=== PATIENT | male | born 1960 | race Caucasian/White ===

== ENCOUNTER 2016-12-14 07:55 | Emergency (ER) | payer MEDICARE, MEDICAID ==
[2016-12-14] MEDS ORDERED: Ketorolac 60 MG/2 ML SDV IM ONE (08:03)
[2016-12-14 08:36] VITALS: BP 136/70
--- NOTE | 2016-12-14 08:40 | EDM.PDOC ---
[id number]: PAIN Time Seen by Provider: 12/14/16 07:55 Source of Information: Reports: Patient History Limitations: Reports: No Limitations - History of Present Illness INITIAL COMMENTS - FREE TEXT/NARRATIVE: c/o generalized pain in w/c in bathroom, w/c fell backward, he said he hurts "everywhere", then says his RLE stump hurt altho this felt better, says he jammed his R 4th and 5th finger altho he can move them, says his R elbow hurts which is fused but otherwise appears normal he felt better after Toradol here, he took his morning meds here in ED (usually takes them at 08:30 at home) his pain meds at home include lido 5%, fentanyl 50, trazdone 100, Benadryl 25 mg , gabapentin 9009 mg tid, oxycodone 20 mg q4h, Wellbutrin SR 200 mg 2 tabs qAM and 1 tab qPM, baclofen 5 mg tid - Related Data Allergies Allergy/AdvReac Type Severity Reaction Status Date / Time No Known Allergies Allergy Verified 12/14/16 08:00 Home Meds: Home Meds Ascorbic Acid [Acerola C] 500 mg PO DAILY 12/14/16 [History] Butalb/Acetaminophen/Caffeine [Xegmcf-Qjiaisgn-Vhch 50-325-40] 1 tab PO TID [History] Fish Oil/[place]-3 Fatty Acids [Fish Oil] 1 each PO DAILY 12/14/16 [History] Gabapentin [Neurontin] 800 mg PO TID 12/14/16 [History] Levothyroxine Sodium [Synthroid] 25 mcg PO ACBREAKFAST 12/14/16 [History] Lidocaine 5% [Lidoderm 5%] 2 patch TOP DAILY 12/14/16 [History] Multivitamin [Multivitamins] 1 cap PO DAILY 12/14/16 [History] PARoxetine HCl [Paxil] 40 mg PO DAILY 12/14/16 [History] PARoxetine [Paxil] 10 mg PO DAILY 12/14/16 [History] Polyethylene Glycol 3350 [MiraLAX] 17 gm PO DAILY 12/14/16 [History] Warfarin [Coumadin] 10 mg PO DAILY 12/14/16 [History] Zolpidem Tartrate [Ambien] 10 mg PO BEDTIME 12/14/16 [History] atorvaSTATin [Lipitor] 20 mg PO BEDTIME 12/14/16 [History] buPROPion HCl [Wellbutrin Sr] 200 mg PO BID 12/14/16 [History] diphenhydrAMINE [Benadryl] 25 mg PO TID 12/14/16 [History] fentaNYL [Fentanyl] 50 mcg TD ASDIRECTED 12/14/16 [History] oxyCODONE HCl [Oxycodone HCl] 20 mg PO Q4HR PRN 12/14/16 [History] oxyCODONE HCl [Oxycontin] 60 mg PO BID 12/14/16 [History] traZODone HCl [Trazodone HCl] 200 mg PO BEDTIME 12/14/16 [History] ED ROS GENERAL - Review of Systems Review Of Systems: See Below Constitutional: Reports: No Symptoms HEENT: Reports: No Symptoms Respiratory: Reports: No Symptoms Cardiovascular: Reports: No Symptoms Endocrine: Reports: No Symptoms GI/Abdominal: Reports: No Symptoms : Reports: No Symptoms Musculoskeletal: Reports: Other (stump pain, RUE pain, generalized pain) Skin: Reports: No Symptoms Neurological: Reports: No Symptoms Psychiatric: Reports: No Symptoms Hematologic/Lymphatic: Reports: No Symptoms Immunologic: Reports: No Symptoms ED EXAM, UPPER BACK/NECK PAIN - Physical Exam Exam: See Below Exam Limited By: No Limitations General Appearance: Alert, WD/WN, Other (moaning without apparent reason for his c/o, no PT anywhere, moves his ext x 3 without hesitation or limitation) Nose Exam: Normal Inspection, Normal Mucousa, No Blood Throat/Mouth Exam: Normal Inspection, Normal Voice, No Airway Compromise Head Exam: Atraumatic, Normocephalic Cardiovascular/Respiratory: Regular Rate, Rhythm GI/Abdominal: Soft, Non-Tender Extremities: Other (RLL absent at the hip, RUE with fusion in partial flexion, at elbow no PT, no STS, no ecchymosis, fingers on R with FROM, no swell, no PT) Neurologic: No Motor/Sensory Deficits, Alert, Oriented x 3 Psychiatric: Anxious Skin Exam: Normal Color, Warm/Dry Lymphatic: No Adenopathy Course - Vital Signs Last Recorded V/S: Last Vital Signs Temp 37.2 C 12/14/16 07:55 Pulse 64 12/14/16 07:55 Resp 18 12/14/16 07:55 BP 136/70 12/14/16 07:55 Pulse Ox 98 12/14/16 07:55 - Orders/Labs/Meds Meds: Medications Discontinued Medications Generic Name Dose Route Start Last Admin Trade Name Stephanie PRN Reason Stop Dose Admin Ketorolac Tromethamine 60 mg 12/14/16 08:03 12/14/16 08:11 Toradol IM 12/14/16 08:04 60 mg ONETIME ONE Administration - Re-Assessments/Exams Free Text/Narrative Re-Assessment/Exam: 12/14/16 11:15 pt had temp 99.5 which may have been d/t his physical activity and thrashing around when he arrived, however he has chronic difficulty with voiding d/t his prior injuries, a u/a was ordered but pt could not obtain a urine here (he had voided x 3 before leaving home), pt agreed to sent a urine in to the hospital from home later for testing Departure - Departure Time of Disposition: 08:41 Disposition: Home, Self-Care 01 Condition: good Clinical Impression: Contusion of right elbow, Contusion of pelvis, Head contusion - Discharge Information Referrals: Montserrat Weller [employer] [Primary Care Provider] - Forms: ED Department Discharge Additional Instructions: Continue your current meds. Use ice for 10 minutes every 2 hours as needed. As an alternative, may use heat for 10 minutes every 2 hours. Rest. Continue current activities. See your doctor in 2 days if you are still having discomfort.
== END 2016-12-14 11:10 | disposition home or self-care (01) ==
LOC: FB.ED 07:55
DX: S50.01XA Contusion of right elbow, initial encounter (principal); S30.0XXA Contusion of lower back and pelvis, initial encounter; S00.93XA Contusion of unspecified part of head, initial encounter; Z79.899 Other long term (current) drug therapy; Z79.01 Long term (current) use of anticoagulants; W18.11XA Fall from or off toilet without subsequent striking against object, initial encounter
CPT/HCPCS: 96372; 99284; J1885; 99283

== ENCOUNTER 2019-02-09 14:18 | Emergency (ER) | payer MEDICARE, OTHER ==
--- NOTE | 2019-02-09 14:54 | EDM.PDOC ---
ED HPI GENERAL MEDICAL PROBLEM - General Chief Complaint: Lower Extremity Injury/Pain Stated Complaint: SWELLING IN LEG Time Seen by Provider: 02/09/19 14:30 Source of Information: Reports: Patient, Old Records History Limitations: Reports: No Limitations - History of Present Illness INITIAL COMMENTS - FREE TEXT/NARRATIVE: Hoa comes to [facility] ED with a 3 day hx of progressive pain and some additional swelling in the LLE. There is no injury hx, known infection, or pulmonary sxs. 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 He is also reporting vague L lower flank pain and a hx of bladder stones, with a cystoscopy scheduled next week in [place]. In addition, he is reporting new onset tenderness and swelling of the L lateral neck near the angle of the mandible, significance unknown. He has taken no meds. Left Leg Pain Score (Numeric/FACES): 4 - Related Data Allergies Allergy/AdvReac Type Severity Reaction Status Date / Time No Known Allergies Allergy Verified 12/28/18 18:10 Home Meds: Home Meds Ascorbic Acid [Acerola C] 500 mg PO DAILY 12/14/16 [History] Butalb/Acetaminophen/Caffeine [Cyertn-Tiunwkqj-Ziut 50-325-40] 1 tab PO TID [History] Fish Oil/[place]-3 Fatty Acids [Fish Oil] 1 each PO DAILY 12/14/16 [History] Gabapentin [Neurontin] 800 mg PO TID 12/14/16 [History] Levothyroxine Sodium [Synthroid] 25 mcg PO ACBREAKFAST 12/14/16 [History] Lidocaine 5% [Lidoderm 5%] 2 patch TOP DAILY 12/14/16 [History] Multivitamin [Multivitamins] 1 cap PO DAILY 12/14/16 [History] PARoxetine HCl [Paxil] 40 mg PO DAILY 12/14/16 [History] PARoxetine [Paxil] 10 mg PO DAILY 12/14/16 [History] Polyethylene Glycol 3350 [MiraLAX] 17 gm PO DAILY 12/14/16 [History] Warfarin [Coumadin] 10 mg PO DAILY 12/14/16 [History] Zolpidem Tartrate [Ambien] 10 mg PO BEDTIME 12/14/16 [History] atorvaSTATin [Lipitor] 20 mg PO BEDTIME 12/14/16 [History] buPROPion HCl [Wellbutrin Sr] 200 mg PO BID 12/14/16 [History] diphenhydrAMINE [Benadryl] 25 mg PO TID 12/14/16 [History] fentaNYL [Fentanyl] 50 mcg TD ASDIRECTED 12/14/16 [History] oxyCODONE HCl [Oxycodone HCl] 20 mg PO Q4HR PRN 12/14/16 [History] oxyCODONE HCl [Oxycontin] 60 mg PO BID 12/14/16 [History] traZODone HCl [Trazodone HCl] 200 mg PO BEDTIME 12/14/16 [History] Past Medical History Cardiovascular History: Reports: Blood Clots/VTE/DVT (L leg x 2), High Cholesterol Genitourinary History: Reports: Renal Calculus Musculoskeletal History: Reports: Amputation (R leg) Psychiatric History: Reports: Other (See Below) (insomnia) Review of Systems - Review of Systems Review Of Systems: See Below Constitutional: Reports: No Symptoms Eyes: Reports: No Symptoms Ears: Reports: No Symptoms Nose: Reports: No Symptoms Mouth/Throat: Reports: Other (edentulous; pain, swelling left lateral neck and angle of mandible) Respiratory: Reports: No Symptoms Cardiovascular: Reports: No Symptoms GI/Abdominal: Reports: No Symptoms Genitourinary: Reports: Other (L lower flank pain) Musculoskeletal: Reports: Leg Pain (L leg with swelling that has slowly progressed) Skin: Reports: Erythema (L leg that may be old) Neurological: Reports: No Symptoms Psychiatric: Reports: Other (insomnia) ED EXAM, GENERAL - Physical Exam Exam: See Below Exam Limited By: No Limitations General Appearance: Alert, WD/WN, No Apparent Distress, Obese Eye Exam: Bilateral Eye: EOMI, Normal Inspection, PERRL Ears: Normal External Exam Ear Exam: Bilateral Ear: Auricle Normal, Canal Normal, TM normal Nose: Normal Inspection Throat/Mouth: Normal Lips, Normal Oropharynx, Normal Voice, Other (edentulous) Head: Normocephalic Neck: Normal Inspection, Supple, Full Range of Motion, Tender Lateral (left, no swelling or deformity) Respiratory/Chest: No Respiratory Distress, Lungs Clear, Normal Breath Sounds, No Accessory Muscle Use, Chest Non-Tender Cardiovascular: Regular Rate, Rhythm, No Murmur GI/Abdominal: Normal Bowel Sounds, Soft, Non-Tender, No Organomegaly, No Distention, No Mass (Male) Exam: Deferred Rectal (Males) Exam: Deferred Back Exam: Normal Inspection Extremities: Leg Pain (left leg: chronic edema to midcalf, some erythema with limited tenderness of calf; Homans neg; ) Neurological: Alert, Oriented, CN II-XII Intact Psychiatric: Depressed Mood, Flat Affect Skin Exam: Warm, Dry, Erythema (L leg) Lymphatic: No Adenopathy Course - Vital Signs Text/Narrative:: Following assessment, I obtained screening labs including CBC, CRP, DDimer and UA, all baseline. The doppler veinous US of L leg was negative for DVT. No new clinical findings were confirmed. Last Recorded V/S: Last Vital Signs Temp 36.6 C 02/09/19 14:20 Pulse 82 02/09/19 14:20 Resp 18 02/09/19 14:20 BP 131/85 02/09/19 14:20 Pulse Ox 100 02/09/19 14:20 - Orders/Labs/Meds Orders: Active Orders 24 hr Category Date Time Status VL Duplex Lwr Ext Veins Ltd Lt [US] Stat Exams 02/09/19 14:44 Ordered Labs: Laboratory Tests 02/09/19 02/09/19 02/09/19 Range/Units 14:56 14:56 14:56 WBC 8.2 (4.5-12.0) X10-3/uL RBC 4.97 (4.30-5.75) x10(6)uL Hgb 15.3 (13.5-17.8) g/dL Hct 45.4 (30.0-51.3) % MCV 91.4 (80-96) fL MCH 30.8 (27.7-33.6) pg MCHC 33.7 (32.2-35.4) g/dL RDW 13.4 (11.5-15.5) % Plt Count 172 (125-369) X10(3)uL MPV 9.0 (7.4-10.4) fL Neut % (Auto) 66.8 (46-82) % Lymph % (Auto) 17.1 (13-37) % [place] % (Auto) 11.3 (4-12) % Eos % (Auto) 4 (1.0-5.0) % Baso % (Auto) 1 (0-2) % Neut # (Auto) 5.5 (1.6-8.3) # Lymph # (Auto) 1.4 (0.6-5.0) # [place] # (Auto) 0.9 (0.0-1.3) # Eos # (Auto) 0.4 (0.0-0.8) # Baso # (Auto) 0.0 (0.0-0.2) # PT (8.7-11.1) INR (0.89-1.13) D-Dimer, Quantitative 0.21 (0.0-0.59) mg/LFEU C-Reactive Protein 0.8 (0.5-0.9) mg/dL Urine Color (YELLOW) Urine Appearance (CLEAR) Urine pH (5.0-6.5) Ur Specific [place] [employer] (1.010-1.025) Urine Protein (NEGATIVE) mg/dL Urine Glucose (UA) (NORMAL) mg/dL Urine Ketones (NEGATIVE) mg/dL Urine Occult Blood (NEGATIVE) Urine Nitrite (NEGATIVE) Urine Bilirubin (NEGATIVE) Urine Urobilinogen (NEGATIVE) mg/dL Ur Leukocyte Esterase (NEGATIVE) Urine RBC (0-5) Urine WBC (0-5) Ur Squamous Epith Cells (NS,R,O) Urine Bacteria (NS) 02/09/19 02/09/19 Range/Units 14:56 15:10 WBC (4.5-12.0) X10-3/uL RBC (4.30-5.75) x10(6)uL Hgb (13.5-17.8) g/dL Hct (30.0-51.3) % MCV (80-96) fL MCH (27.7-33.6) pg MCHC (32.2-35.4) g/dL RDW (11.5-15.5) % Plt Count (125-369) X10(3)uL MPV (7.4-10.4) fL Neut % (Auto) (46-82) % Lymph % (Auto) (13-37) % [place] % (Auto) (4-12) % Eos % (Auto) (1.0-5.0) % Baso % (Auto) (0-2) % Neut # (Auto) (1.6-8.3) # Lymph # (Auto) (0.6-5.0) # [place] # (Auto) (0.0-1.3) # Eos # (Auto) (0.0-0.8) # Baso # (Auto) (0.0-0.2) # PT 26.3 H (8.7-11.1) INR 2.74 H (0.89-1.13) D-Dimer, Quantitative (0.0-0.59) mg/LFEU C-Reactive Protein (0.5-0.9) mg/dL Urine Color Yellow (YELLOW) Urine Appearance Clear (CLEAR) Urine pH 7.0 H (5.0-6.5) Ur Specific [place] [employer] 1.010 (1.010-1.025) Urine Protein Negative (NEGATIVE) mg/dL Urine Glucose (UA) Normal (NORMAL) mg/dL Urine Ketones Negative (NEGATIVE) mg/dL Urine Occult Blood Negative (NEGATIVE) Urine Nitrite Negative (NEGATIVE) Urine Bilirubin Negative (NEGATIVE) Urine Urobilinogen Normal (NEGATIVE) mg/dL Ur Leukocyte Esterase Negative (NEGATIVE) Urine RBC 0-5 (0-5) Urine WBC 0-5 (0-5) Ur Squamous Epith Cells Rare (NS,R,O) Urine Bacteria Rare H (NS) Departure - Departure Time of Disposition: 16:50 Disposition: Home, Self-Care 01 Condition: Fair Clinical Impression: Chronic pain of left lower extremity, Chronic neck pain - Discharge Information *PRESCRIPTION DRUG MONITORING PROGRAM REVIEWED*: No *COPY OF PRESCRIPTION DRUG MONITORING REPORT IN PATIENT JOAUQIN: No Instructions: Chronic Pain, Adult Referrals: Montserrat Weller [employer] [Primary Care Provider] - Forms: ED Department Discharge Additional Instructions: Take medication as prescribed, follow up with PCP if needed. - Problem List & Annotations (1) Chronic neck pain SNOMED Code(s): 6967828181225 Code(s): M54.2 - CERVICALGIA; G89.29 - OTHER CHRONIC PAIN Status: Acute Current Visit: Yes Annotation/Comment:: Continue current pain management and follow up with PCP. (2) Chronic pain of left lower extremity SNOMED Code(s): 23606366 Code(s): M79.605 - PAIN IN LEFT LEG; G89.29 - OTHER CHRONIC PAIN Status: Acute Current Visit: Yes Annotation/Comment:: Continue current pain managment and follow up with PCP. - Problem List Review Problem List Initiated/Reviewed/Updated: Yes - My Orders Last 24 Hours: My Active Orders 02/09/19 14:44 VL Duplex Lwr Ext Veins Ltd Lt [US] Stat - Assessment/Plan Last 24 Hours: My Active Orders 02/09/19 14:44 VL Duplex Lwr Ext Veins Ltd Lt [US] Stat Plan: Follow up with PCP.
--- NOTE | 2019-02-10 10:52 | US ---
INDICATION: Swelling left lower extremity, progressive pain times 3 days, question DVT. DUPLEX ULTRASOUND, LEFT LOWER EXTREMITY VEINS: Utilizing 2-D real time, duplex Doppler spectral analysis and color flow imaging, examination of the left lower extremity veins, including the common femoral vein, proximal greater saphenous vein, proximal deep femoral vein, proximal femoral vein, mid femoral vein, distal femoral vein, popliteal vein, posterior tibial vein, and proximal peroneal vein only, (the anterior tibial vein was difficult to visualize, visualization was somewhat limited due to calf edema), revealed no evidence of deep venous thrombosis or obstruction. Compression views showed no abnormal lack of compression to suggest thrombosis. No evidence of incompetence of the valves was identified. IMPRESSION: Duplex ultrasound, left lower extremity veins, shows no evidence of deep venous thrombosis or incompetence. Report was called to Dr. Bolton at 1633 hours on 02/09/19. ROXI
== END 2019-02-09 17:00 | disposition home or self-care (01) ==
LOC: FB.ED 14:18
DX: M79.662 Pain in left lower leg (principal); M54.2 Cervicalgia; G89.29 Other chronic pain; E78.00 Pure hypercholesterolemia, unspecified; Z79.899 Other long term (current) drug therapy; Z79.01 Long term (current) use of anticoagulants; Z87.442 Personal history of urinary calculi
CPT/HCPCS: 36415; 81001; 85025; 85379; 85610; 86140; 93971-LT; 99282; 99283

== ENCOUNTER 2019-12-29 14:27 | Emergency (ER) | payer MEDICARE, SELFPAY ==
--- NOTE | 2019-12-29 15:15 | EDM.PDOC ---
ED HPI GENERAL MEDICAL PROBLEM - General Chief Complaint: Cardiovascular Problem Stated Complaint: LT LEG AND BACK PAIN Time Seen by Provider: 12/29/19 15:15 Source of Information: Reports: Patient, Old Records History Limitations: Reports: No Limitations - History of Present Illness INITIAL COMMENTS - FREE TEXT/NARRATIVE: Sara returns to [facility] ED with a relapse of pain and swelling in LL leg over the past 3 days. The left leg feels tight below the knee, with some discoloration and pain with wt bearing. There is a PMH of DVT x 2 in this leg, and he is worried about a recurrence. He was last studied with a Doppler US during January 2019, report negative for DVT. He has been compliant with his Coumadin therapy, last INR 2.9 last week. Other complaints include chronic lower back pain, chronic pain and stiffness of R elbow, and some issues with L sided abdominal pain and constipation, aggravated by chronic opioid managment. Lower Back Pain Score (Numeric/FACES): 9 leg Pain Score (Numeric/FACES): 7 - Related Data Allergies Allergy/AdvReac Type Severity Reaction Status Date / Time No Known Allergies Allergy Verified 12/29/19 15:11 Home Meds: Home Meds Ascorbic Acid [Acerola C] 500 mg PO DAILY 12/14/16 [History] Fish Oil/[place]-3 Fatty Acids [Fish Oil] 1 each PO DAILY 12/14/16 [History] Gabapentin [Neurontin] 1,000 mg PO TID 12/14/16 [History] Levothyroxine Sodium [Synthroid] 25 mcg PO ACBREAKFAST 12/14/16 [History] Multivitamin [Multivitamins] 1 cap PO DAILY 12/14/16 [History] PARoxetine HCl [Paxil] 40 mg PO DAILY 12/14/16 [History] Warfarin [Coumadin] 10 mg PO FR 12/14/16 [History] Zolpidem Tartrate [Ambien] 10 mg PO BEDTIME 12/14/16 [History] atorvaSTATin [Lipitor] 10 mg PO BEDTIME 12/14/16 [History] buPROPion HCL [Wellbutrin Sr] 200 mg PO BID 12/14/16 [History] fentaNYL [Fentanyl] 75 mcg TD ASDIRECTED 12/14/16 [History] oxyCODONE HCl [Oxycodone HCl] 20 mg PO Q6HR 12/14/16 [History] traZODone HCl [Trazodone HCl] 200 mg PO BEDTIME 12/14/16 [History] DULoxetine HCl [Cymbalta] 60 mg PO DAILY 12/29/19 [History] Famotidine 20 mg PO DAILY 12/29/19 [History] Finasteride 5 mg PO DAILY 12/29/19 [History] Oxybutynin 5 mg PO DAILY 12/29/19 [History] Tamsulosin HCl [Flomax] 0.4 mg PO DAILY 12/29/19 [History] Warfarin Sodium [Jantoven] 7.5 mg PO SUMOTUWETHSA 12/29/19 [History] Past Medical History Cardiovascular History: Reports: Blood Clots/VTE/DVT (L leg x 2), High Cholesterol Genitourinary History: Reports: Renal Calculus Musculoskeletal History: Reports: Amputation (R leg) Psychiatric History: Reports: Other (See Below) (insomnia) Social & Family History - Caffeine Use Caffeine Use: Reports: None ED ROS GENERAL - Review of Systems Review Of Systems: See Below Constitutional: Reports: Malaise HEENT: Reports: No Symptoms Respiratory: Reports: No Symptoms Cardiovascular: Reports: No Symptoms Endocrine: Reports: No Symptoms GI/Abdominal: Reports: Abdominal Pain, Constipation : Reports: Other (hx of renal calculus) Musculoskeletal: Reports: Neck Pain, Back Pain, Leg Pain Skin: Reports: Erythema, Change in Color (Left lower leg, with phlegmatic appearance) Psychiatric: Reports: Anxiety Hematologic/Lymphatic: Reports: No Symptoms Immunologic: Reports: No Symptoms ED EXAM, GENERAL - Physical Exam Exam: See Below Exam Limited By: No Limitations General Appearance: Alert, WD/WN, Anxious, Obese Eye Exam: Bilateral Eye: EOMI, Normal Inspection, PERRL Ears: Normal External Exam Nose: Normal Inspection Throat/Mouth: Normal Inspection, Normal Oropharynx, Normal Voice Head: Normocephalic Neck: Normal Inspection, Limited Range of Motion Respiratory/Chest: No Respiratory Distress, Lungs Clear, No Accessory Muscle Use Cardiovascular: Regular Rate, Rhythm, No Murmur GI/Abdominal: Normal Bowel Sounds, Soft, Non-Tender, No Organomegaly, No Distention, No Mass (Male) Exam: Deferred Rectal (Males) Exam: Deferred Back Exam: Decreased Range of Motion, Paraspinal Tenderness (SI joint pain on L ; neg SN tenderness) Extremities: Pedal Edema (L leg), Leg Pain (L lower leg, w edema), Redness Neurological: Alert, Oriented, CN II-XII Intact, Normal Cognition, No Motor/ Sensory Deficits Psychiatric: Normal Affect, Anxious Skin Exam: Warm, Dry, Intact, Erythema (with phlegmatic appearance) Lymphatic: No Adenopathy Course - Vital Signs Text/Narrative:: Following assessment, some screening labwork was performed and remains baseline. The Doppler US VV to L leg was negative for DVT. Last Recorded V/S: Last Vital Signs Temp 36.9 C 12/29/19 14:30 Pulse 70 12/29/19 14:30 Resp 18 12/29/19 14:30 BP 120/82 12/29/19 14:30 Pulse Ox 97 12/29/19 14:30 - Orders/Labs/Meds Orders: Active Orders 24 hr Category Date Time Status VL Duplex Lwr Ext Veins Ltd Lt [US] Stat Exams 12/29/19 15:09 Taken URINALYSIS W/MICROSCOPIC [UA W/MICROSCOPIC] [URIN] Stat Lab 12/29/19 16:20 Received Labs: Laboratory Tests 12/29/19 12/29/19 12/29/19 Range/Units 15:30 15:30 15:30 WBC 9.0 (4.5-12.0) X10-3/uL RBC 5.11 (4.30-5.75) x10(6)uL Hgb 15.0 (13.5-17.8) g/dL Hct 45.3 (30.0-51.3) % MCV 88.6 (80-96) fL MCH 29.2 (27.7-33.6) pg MCHC 33.0 (32.2-35.4) g/dL RDW 14.2 (11.5-15.5) % Plt Count 190 (125-369) X10(3)uL MPV 8.8 (7.4-10.4) fL Neut % (Auto) 70.7 (46-82) % Lymph % (Auto) 16.2 (13-37) % [place] % (Auto) 9.2 (4-12) % Eos % (Auto) 3 (1.0-5.0) % Baso % (Auto) 1 (0-2) % Neut # (Auto) 6.3 (1.6-8.3) # Lymph # (Auto) 1.5 (0.6-5.0) # [place] # (Auto) 0.8 (0.0-1.3) # Eos # (Auto) 0.3 (0.0-0.8) # Baso # (Auto) 0.1 (0.0-0.2) # PT 29.5 H (9.0-11.1) sec INR 2.93 H (1.00-1.24) D-Dimer, Quantitative < 0.19 (0.0-0.59) mg/LFEU Sodium 137 (135-145) mmol/L Potassium 4.4 (3.5-5.3) mmol/L Chloride 101 (100-110) mmol/L Carbon Dioxide 31 (21-32) mmol/L BUN 10 (7-18) mg/dL Creatinine 0.8 (0.70-1.30) mg/dL Est Cr Clr Drug Dosing TNP Estimated GFR (MDRD) > 60 (>60) BUN/Creatinine Ratio 12.5 (9-20) Glucose 106 (80-116) mg/dL Calcium 8.7 (8.6-10.2) mg/dL Departure - Departure Time of Disposition: 16:40 Disposition: Home, Self-Care 01 Condition: Fair Clinical Impression: Dependent edema, Sacroiliitis Referrals: Montserrat Weller [employer] [Primary Care Provider] - Forms: ED Department Discharge Sepsis Event Note - Evaluation Sepsis Screening Result: No Definite Risk - Focused Exam Vital Signs: Vital Signs Temp Pulse Resp BP Pulse Ox 12/29/19 14:30 36.9 C 70 18 120/82 97 Date Exam was Performed: 12/29/19 Time Exam was Performed: 16:42 - Problem List & Annotations (1) Dependent edema SNOMED Code(s): 360023813 Code(s): R60.9 - EDEMA, UNSPECIFIED Status: Acute Current Visit: Yes Annotation/Comment:: Dependent edema of L lower leg related to chronic venous insufficiency. He was wrapped in 6" geovanny to [place], advised rewrapping and elevation until swelling subsides, and then midthigh MELISSA stockings continuous. (2) Sacroiliitis SNOMED Code(s): 04373381 Code(s): M46.1 - SACROILIITIS, NOT ELSEWHERE CLASSIFIED Status: Acute Current Visit: Yes Annotation/Comment:: L sacroilitis related to pivoting onto L leg with all transfers. I suggested analgesic of choice, and see PCP for referral to orthopedist for evaluation and possible injection. - Problem List Review Problem List Initiated/Reviewed/Updated: Yes - My Orders Last 24 Hours: My Active Orders 12/29/19 15:09 VL Duplex Lwr Ext Veins Ltd Lt [US] Stat 12/29/19 16:20 URINALYSIS W/MICROSCOPIC [UA W/MICROSCOPIC] [URIN] Stat - Assessment/Plan Last 24 Hours: My Active Orders 12/29/19 15:09 VL Duplex Lwr Ext Veins Ltd Lt [US] Stat 12/29/19 16:20 URINALYSIS W/MICROSCOPIC [UA W/MICROSCOPIC] [URIN] Stat Plan: Follow up with PCP.
--- NOTE | 2019-12-29 17:07 | US ---
INDICATION: Pain and swelling left leg times three days, question DVT. DUPLEX ULTRASOUND LEFT LOWER EXTREMITY VEINS: Utilizing 2-D real time, duplex Doppler spectral analysis and color flow imaging , examination of the lower extremity veins, including the common femoral vein, proximal greater saphenous vein, proximal deep femoral vein, proximal femoral vein, mid femoral vein, distal femoral vein, popliteal vein, posterior tibial vein, anterior tibial vein, and peroneal vein, revealed no evidence of deep venous thrombosis or obstruction. Compression views showed no abnormal lack of compression to suggest thrombosis. No evidence of incompetence of the valves was identified. IMPRESSION: Duplex ultrasound, lower extremity veins, shows no evidence of deep venous thrombosis or incompetence. MTDD
== END 2019-12-29 16:50 | disposition home or self-care (01) ==
LOC: FB.ED 14:27
DX: R60.0 Localized edema (principal); M46.1 Sacroiliitis, not elsewhere classified; E78.00 Pure hypercholesterolemia, unspecified; Z86.718 Personal history of other venous thrombosis and embolism; Z79.01 Long term (current) use of anticoagulants
CPT/HCPCS: 36415; 80048; 81001; 85025; 85379; 85610; 93971-LT; 99284-25

== ENCOUNTER 2024-03-12 15:12 | Emergency (ER) | payer MEDICAID, MEDICARE ==
[2024-03-12 15:54] LABS: BASOPHILS ABSOLUTE AUTO 0.1 x10-3/uL (0.0-0.3); BASOPHILS PERCENT AUTO 0.5 % (0.3-3.8); EOSINOPHILS ABSOLUTE AUTO 0.3 x10-3/uL (0.0-0.6); EOSINOPHILS PERCENT AUTO 2.9 % (0.1-6.8); HEMOGLOBIN 15.4 g/dL (12.9-17.7); LYMPHOCYTES ABSOLUTE AUTO 2.7 x10-3/uL (0.5-4.5); LYMPHOCYTES PERCENT AUTO 23.7 % (15.8-45.3); MEAN CORPUSCULAR HEMOGLOBIN 31.3 pg (27.0-33.3); MEAN CORPUSCULAR HGB CONC 34.3 g/dL (28.7-35.3); MEAN CORPUSCULAR VOLUME 91.1 fL (80.8-98.7); MEAN PLATELET VOLUME 8.7 fL (6.7-11.0); MONOCYTES ABSOLUTE AUTO 1.1 x10-3/uL (0.0-1.2); MONOCYTES PERCENT AUTO 9.7 % (5.5-15.2); NEUTROPHILS ABSOLUTE AUTO 7.1 x10-3/uL (1.7-6.9); NEUTROPHILS PERCENT AUTO 63.2 % (40.3-71.8); PLATELET COUNT,PLT 205 x10(3)uL (117-477); RED BLOOD CELL COUNT 4.94 x10(6)uL (3.90-5.90); RED CELL DISTRIBUTION WIDTH 14.3 % (12.4-15.0); WHITE BLOOD CELL COUNT,WBC 11.3 x10-3/uL (3.2-10.1)
[2024-03-12 15:56] LABS: BLOOD UREA NITROGEN,BUN 19 mg/dL (7-18); CALCIUM 8.8 mg/dL (8.6-10.2); CARBON DIOXIDE,CO2 31 mmol/L (21-32); CHLORIDE,CL 101 mmol/L (100-110); EST CRCL DRUG DOSING (CG) 76.04 mL/min; ESTIMATED GFR 84 mL/min (>60); GLUCOSE RANDOM 114 mg/dL (80-116); POTASSIUM,K 4.3 mmol/L (3.5-5.3); SODIUM,NA 138 mmol/L (135-145)
[2024-03-12 16:02] LABS: INR 1.91 (1.00-1.24); PROTHROMBIN TIME 18.8 sec (9.0-11.1); PTT,PARTIAL THROMBOPLSTIN TIME 33.9 SECONDS (24.4-33.2)
[2024-03-12 16:05] LABS: A/G RATIO 0.8; ALANINE AMINOTRANSFERASE,ALT 38 U/L (12-36); ALBUMIN 3.4 g/dL (3.2-4.6); ALKALINE PHOSPHATASE 92 IU/L (56-112); ASPARTATE AMNIOTRANSFERASE,AST 23 IU/L (5-25); BILIRUBIN TOTAL 0.4 mg/dL (0.1-1.3); PROTEIN TOTAL,TP 7.8 g/dL (6.0-8.0)
== END 2024-03-12 17:23 | disposition home or self-care (01) ==
LOC: FB.ED 15:12
DX: R04.2 Hemoptysis (principal); J18.9 Pneumonia, unspecified organism; E78.00 Pure hypercholesterolemia, unspecified; F17.210 Nicotine dependence, cigarettes, uncomplicated; Z79.01 Long term (current) use of anticoagulants; Z86.718 Personal history of other venous thrombosis and embolism; Z79.899 Other long term (current) drug therapy; Z79.51 Long term (current) use of inhaled steroids; Z79.890 Hormone replacement therapy; Z79.84 Long term (current) use of oral hypoglycemic drugs
CPT/HCPCS: 36415; 71045; 80053; 85025; 85610; 85730; 99285